=== PATIENT | male | born 1950 | race Caucasian/White ===

== ENCOUNTER 2019-10-13 16:24 | Observation (INO) | payer MEDICARE ==
[~2019-10-13] VITALS: Ht 182.9 cm; Wt 143.4 kg
[2019-10-13] MEDS ORDERED: SODIUM CHLORIDE 0.9% 1000ML 1,000 ML IV STA ×2 (16:44→18:27)
[2019-10-13 17:06] LABS: CLARITY,URINE SL CLOUDY (CLEAR); COLOR,URINE YELLOW (YELLOW); LEUKOCYTE ESTERASE ,URINE NEGATIVE (NEGATIVE)
[2019-10-13 17:07] LABS: BACTERIA,URINE RARE /HPF; BILIRUBIN,URINE NEGATIVE (NEGATIVE); EPITHELIAL CELLS,URINE FEW /LPF; KETONES,URINE NEGATIVE (NEGATIVE); NITRITE,URINE NEGATIVE (NEGATIVE); PROTEIN,URINE DIPSTICK NEGATIVE (NEGATIVE); URINE UROBILINOGEN 0.2 mg/dL (0.2 - 1)
[2019-10-13 17:14] LABS: BASOPHILS % 0.1 % (0.0-1.0); EOSINOPHILS # (AUTO) 0.1 (0.0-0.4); EOSINOPHILS % 0.4 % (0.0-6.0); HEMATOCRIT 49.4 % (38.2-49.6); LYMPHOCYTES # (AUTO) 1.9 (1.0-3.2); LYMPHOCYTES % 11.2 % (18.0-39.1); MEAN CORPUSCULAR HEMOGLOBIN 31.3 pg (28-32); MEAN CORPUSCULAR HGB CONC 34.4 g/dL (31-35); MONOCYTES % 5.7 % (4.4-11.3); NEUTROPHILS # (AUTO) 13.7 (2.1-6.9); NEUTROPHILS % 82.1 % (38.7-80.0); PLATELET COUNT 149 x10e3/uL (140-360); RED BLOOD COUNT 5.43 x10e6/uL (4.3-5.7); RED CELL DISTRIBUTION WIDTH 13.2 % (11.7-14.4)
[2019-10-13 17:21] LABS: ALANINE AMINOTRANSFERASE 40 IU/L (0-55); ALBUMIN 4.6 g/dL (3.5-5.0); ALBUMIN/GLOBULIN RATIO 1.4 (0.8-2.0); ALKALINE PHOSPHATASE 54 IU/L (40-150); ANION GAP 16.2 mmol/L (8-16); BLOOD UREA NITROGEN 27 mg/dL (7-26); BUN/CREATININE RATIO 25 (6-25); CALCIUM 9.8 mg/dL (8.4-10.2); CARBON DIOXIDE 22 mmol/L (22-29); CHLORIDE 103 mmol/L (98-107); CREATINE KINASE 119 IU/L (30-200); CREATININE, SERUM 1.08 mg/dL (0.72-1.25); EST GLOMERULAR FILTRATION RATE > 60 ML/MIN (60-); GLUCOSE 107 mg/dL (74-118); POTASSIUM 5.2 mmol/L (3.5-5.1); SODIUM 136 mmol/L (136-145)
[2019-10-13 17:44] LABS: INFLUENZAE A&B ANTIGEN (RAPID) NEGATIVE (NEGATIVE); STREPTOCOCCUS GRP A ANTIGEN NEGATIVE (NEGATIVE)
--- NOTE | 2019-10-13 18:22 | Diagnostic Imaging Report ---
Examination: Single AP view of the chest. COMPARISON: None. INDICATION: Headache, fever DISCUSSION: Lines/tubes: None. Lungs: The lungs are well inflated and clear. No pneumonia or pulmonary edema. Pleura: No pleural effusion or pneumothorax. Heart and mediastinum: The heart and the mediastinum are unremarkable. Bones and soft tissues: No acute bony abnormalities. IMPRESSION: 1. No acute cardiopulmonary abnormalities. Signed by: Dr. Raffi Dominguez M.D. on 10/13/2019 6:18 PM
--- NOTE | 2019-10-13 18:22 | Diagnostic Imaging Report ---
History: Fever Comparison studies: None Technique: Axial images were obtained from the skull base to the vertex. Coronal and sagittal reconstructions obtained from the axial data. Dose modulation, iterative reconstruction, and/or weight based adjustment of the mA/kV was utilized to reduce the radiation dose to as low as reasonably achievable. Intravenous contrast: None Findings: Scalp/skull: No abnormalities. No fractures, blastic or lytic lesions. Extra-axial spaces: No masses. No fluid collections. Brain sulci: Appropriate for age. Ventricles: Normal in size and configuration. No hydrocephalus. Parenchyma: No abnormal densities. No masses, hemorrhage, acute or chronic cortical vascular insults. Sellar/suprasellar region: No abnormalities Craniocervical junction: Patent foramen magnum. No Chiari one malformation. Incidental findings: None. IMPRESSION: No abnormalities. Signed by: Dr. Rafael Dominguez M.D. on 10/13/2019 6:19 PM
[2019-10-13] MEDS ORDERED: ACETAMINOPHEN 325 MG TAB PO ONE (18:30)
[2019-10-13] MEDS ORDERED: SODIUM CHLORIDE 0.9% 1000ML 1,000 ML ONE (18:33)
[2019-10-13] MEDS: CEFTRIAXONE SOD 1 GM/NS 50 ML 50 ML IV SCH (18:36)
[2019-10-13] MEDS ORDERED: ACETAMINOPHEN 325 MG TAB PO NR (18:45)
--- NOTE | 2019-10-13 19:05 | NUR ---
RECEIVED REPORT FROM [facility]
[2019-10-13] MEDS ORDERED: SODIUM CHLORIDE 0.9% 1000ML 1,000 ML IV SCH (19:10)
[2019-10-13] MEDS ORDERED: ACETAMINOPHEN 325 MG TAB PO PRN (19:15)
[2019-10-13] MEDS ORDERED: ONDANSETRON HCL INJ 2MG/ML 2ML 2 MG/ML VIAL IV PRN (19:15)
--- OUTSIDE RECORDS SUMMARY | 2019-10-13 19:24 | XMS REPORT ---
[facility] Address Unknown Phone Unavailable Care Team Providers Care Electroneurodiagnostic Technician Name Role Phone Jake ELIZONDO Unavailable Unavailable Problems This patient has no known problems. Allergies, Adverse Reactions, Alerts This patient has no known allergies or adverse reactions. Medications This patient has no known medications. Results Test Description Test Time Test Comments Text Results Atomic Results Result Comments CT BRAIN WO 2019-10-13 18:18:00 [facility] [address] [address] Patient Name: NIR DUCKWORTH MR #: [id number] : 1950 Age/Sex: 69/M Req #: [id number] Adm Physician: Ordered by: OSCAR ELIZONDO MD Report #: [id number] Location: ER Room/Bed: Procedure: [id number] CT/CT BRAIN WO Exam Date: 10/13/19 Exam Time: 1755 REPORT STATUS: Signed History: Fever Comparison studies: None Technique: Axial images were obtained from the skull base to the vertex. Coronal and sagittal reconstructions obtained from the axial data. Dose modulation, iterative reconstruction, and/or weight based adjustment of the mA/kV was utilized to reduce the radiation dose to as low as reasonably achievable. Intravenous contrast: None Findings: Scalp/skull: No abnormalities. No fractures, blastic or lytic lesions. Extra-axial spaces: No masses. No fluid collections. Brain sulci: Appropriate for age. Ventricles: Normal in size and configuration. No hydrocephalus. Parenchyma: No abnormal densities. No masses, hemorrhage, acute or chronic cortical vascular insults. Sellar/suprasellar region: No abnormalities Craniocervical junction: Patent foramen magnum. No Chiari one malformation. Incidental findings: None. IMPRESSION: No abnormalities. Signed by: Dr. Rafael Dominguez M.D. on 10/13/2019 6:19 PM Dictated By: RAFAEL DOMINGUEZ MD, MD 18 Transcribed By: ALINA on 10/13/191818 COPY TO: OSCAR ELIZONDO MD CHEST SINGLE (PORTABLE) 2019-10-13 18:18:00 [address] [address] Patient Name: NIR DUCKWORTH MR #: [id number] : 1950 Age/Sex: 69/M Req #: [id number] Adm Physician: Ordered by: ERICKA NICOLAS SEMICONDUCTOR DEVELOPMENT TECHNICIAN Report #: [id number] Location: ER Room/Bed: Procedure: [id number] DX/CHEST SINGLE (PORTABLE) Exam Date: 10/13/19 Exam Time: 1755 REPORT STATUS: Signed Examination: Single AP view of the chest. COMP ARISON: None. INDICATION: Headache, fever DISCUSSION: Lines/tubes: None. Lungs: The lungs are well inflated and clear. No pneumonia or pulmonary edema. Pleura: No pleural effusion or pneumothorax. Heart and mediastinum: The heart and the mediastinum are unremarkable. Bones and soft tissues: No acute bony abnormalities. IMPRESSION: 1. No acute cardiopulmonary abnormalities. Signed by: Dr. Oscar Anderson M.D. on 10/13/2019 6:18 PM Dictated By: OSCAR ANDERSON MD 17 Transcribed By: ALINA on 10/13/191817 COPY TO: ERICKA NICOLAS NP
--- NOTE | 2019-10-13 20:19 | Diagnostic Imaging Report ---
EXAM: CT Chest WITHOUT contrast 10/13/2019 6:20 PM INDICATION: Fever. Cough. Sore throat. COMPARISON: None TECHNIQUE: Chest was scanned utilizing a multidetector helical scanner from the lung apex through the level of the adrenal glands without administration of IV contrast. Absence of intravenous contrast decreases sensitivity for detection of lymphadenopathy and vascular pathology. Coronal and sagittal reformations were obtained. Routine protocol was performed. IV CONTRAST: None RADIATION DOSE: Total DLP: 546.32 mGy*cm Estimated effective dose: (DLP x 0.014 x size factor) mSv COMPLICATIONS: None FINDINGS: LINES/ TUBES: None. LUNGS AND AIRWAYS: Calcified minimal linear posterior left lower lobe on image 86. Mild bibasilar dependent atelectasis, right greater than left. PLEURA: The pleural spaces are clear. HEART AND MEDIASTINUM: 1.5 cm nodule in the inferior left thyroid lobe. A few small calcified lymph nodes in the left hilum and subcarinal region. No mediastinal, hilar or axillary lymphadenopathy. The heart is normal in size.. There is no pericardial effusion. There are mild atherosclerotic calcifications in the aorta and coronary arteries. UPPER ABDOMEN: Limited non-contrast views of the upper abdomen show calcification in the posterior right hepatic lobe. Mild thickening of the adrenal glands bilaterally may reflect hyperplasia. BONES: There are degenerative changes in the thoracic spine. SOFT TISSUES: Unremarkable. IMPRESSION: Mild bibasilar atelectasis. No consolidation. Sequela from prior granulomatous disease. Signed by: Dr. Ricco Wilkinson M.D. on 10/13/2019 8:16 PM
[2019-10-13 22:17] VITALS: BP 110/52
[2019-10-13 22:26] VITALS: BP 110/52
[2019-10-13 22:52] VITALS: BP 110/52
--- NOTE | 2019-10-13 23:00 | NUR ---
RECEIVED PATIENT FROM ER VIA WHEELCHAIR IN STABLE CONDITION, AMBULATED FROM CHAIR TO BED SUCCESSFULLY AND NO SIGNS OF DISTRESS NOTED. IV FLUIDS ARE RUNNING AT ORDERED RATE AND PATIENT VOICES NO PAIN AT THIS TIME. BED IS IN LOW POSITION, SIDE RAILS ARE UP, CALL LIGHT IS WITHIN EASY REACH, WILL CONTINUE TO MONITOR.
[2019-10-14 00:53] VITALS: BP 120/58
[2019-10-14 04:46] VITALS: BP 105/53
[2019-10-14] MEDS: CEFTRIAXONE SOD 1 GM/NS 50 ML 50 ML IV SCH (05:48)
[2019-10-14 05:54] LABS: BASOPHILS % 0.2 % (0.0-1.0); EOSINOPHILS # (AUTO) 0.1 (0.0-0.4); EOSINOPHILS % 0.6 % (0.0-6.0); HEMATOCRIT 41.8 % (38.2-49.6); HEMOGLOBIN 13.7 g/dL (14.0-18.0); LYMPHOCYTES # (AUTO) 1.3 (1.0-3.2); LYMPHOCYTES % 15.6 % (18.0-39.1); MEAN CORPUSCULAR HEMOGLOBIN 30.9 pg (28-32); MEAN CORPUSCULAR HGB CONC 32.8 g/dL (31-35); MEAN CORPUSCULAR VOLUME 94.1 fL (81-99); MONOCYTES # (AUTO) 0.8 (0.2-0.8); MONOCYTES % 8.7 % (4.4-11.3); NEUTROPHILS # (AUTO) 6.4 (2.1-6.9); NEUTROPHILS % 74.6 % (38.7-80.0); PLATELET COUNT 124 x10e3/uL (140-360); RED BLOOD COUNT 4.44 x10e6/uL (4.3-5.7); RED CELL DISTRIBUTION WIDTH 13.3 % (11.7-14.4)
[2019-10-14 06:09] LABS: CREATINE KINASE 109 IU/L (30-200)
[2019-10-14 06:33] LABS: ALANINE AMINOTRANSFERASE 26 IU/L (0-55); ALBUMIN 3.5 g/dL (3.5-5.0); ALBUMIN/GLOBULIN RATIO 1.5 (0.8-2.0); ALKALINE PHOSPHATASE 40 IU/L (40-150); ANION GAP 10.2 mmol/L (8-16); BLOOD UREA NITROGEN 22 mg/dL (7-26); BUN/CREATININE RATIO 19 (6-25); CALCIUM 8.8 mg/dL (8.4-10.2); CARBON DIOXIDE 27 mmol/L (22-29); CHLORIDE 106 mmol/L (98-107); CREATININE, SERUM 1.13 mg/dL (0.72-1.25); EST GLOMERULAR FILTRATION RATE > 60 ML/MIN (60-); GLUCOSE 108 mg/dL (74-118); POTASSIUM 4.2 mmol/L (3.5-5.1); SODIUM 139 mmol/L (136-145)
[2019-10-14 07:32] VITALS: BP 108/59
[2019-10-14 08:57] VITALS: BP 108/59
--- NOTE | 2019-10-14 09:05 | NUR ---
Patient up in bed, denies any pain, no distress, AA0-x3
[2019-10-14 11:46] VITALS: BP 124/59
--- NOTE | 2019-10-14 13:15 | NUR ---
Pt unavailable at this time. Assistant Inventory Manager performing procedure bedside. I will follow up as able. KHUSHBOO CHACKO Manufacturing Engineer [facility] O: [phone]
[2019-10-14 14:16] LABS: CREATINE KINASE MB 1.2 ng/mL (0-5.0)
--- NOTE | 2019-10-14 15:59 | NUR ---
patient discharged home, No new prescription, discharge instruction given, , IV canula removed with tip intact, no ss of infiltration noted, denies any pain, no distress, escorted to walk with him, he refused wheelchair.
--- NOTE | 2019-10-29 21:57 | Discharge Summary ---
PRIMARY CARE DOCTOR: Davie Boucher MD FINAL DIAGNOSIS: Febrile illness, cannot rule out heat stroke. SECONDARY DIAGNOSIS: Hypertension. CONSULTANTS: None. PROCEDURES/STUDIES PERFORMED: CT shows atelectasis. HISTORY: Per [facility]. HOSPITAL COURSE: The patient was admitted with fever with hydration. His white count normalized very quickly, possibly this could be a heat stroke. The patient feels well at this time. I have updated his primary care doctor about this hospitalization. CONDITION ON DISCHARGE: Improved. DISCHARGE MEDICATIONS: Please see medication reconciliation form. Yiching MD KATIE Patterson/LEE /[id number] cc: [facility]
== END 2019-10-14 15:50 | disposition home or self-care (01) ==
LOC: ER 16:24 → ERHOLD 19:18 → MED/SURG3 21:13
PROVIDERS: ADMIT Internal Medicine; ATTEND Internal Medicine
DX: N39.0 Urinary tract infection, site not specified (principal); R50.9 Fever, unspecified; I10 Essential (primary) hypertension; E78.5 Hyperlipidemia, unspecified
CPT/HCPCS: 36415 ×2; 70450; 71045; 71250; 80053 ×2; 81001; 82550 ×2; 82553 ×2; 83518; 84484 ×2; 85025 ×2; 87040; 87070; 87086; 87400; 99284; G0378 ×2; J0696 ×2; J7030